=== PATIENT | female | born 1965 | race Caucasian/White ===

== ENCOUNTER → 2021-09-20 10:06 | Outpatient (BNVA) | payer OTHER, SELFPAY | PROVIDERS: PCP Pediatrics; Visit Provider Nurse Practitioner Family | DX: M48.061 Spinal stenosis, lumbar region without neurogenic claudication (principal); M54.16 Radiculopathy, lumbar region; M51.36 Other intervertebral disc degeneration, lumbar region; Z96.82 Presence of neurostimulator | CPT/HCPCS: 99202 ==

== ENCOUNTER → 2021-10-04 09:06 | Outpatient (BNVA) | payer OTHER, SELFPAY | PROVIDERS: PCP Pediatrics; Visit Provider Nurse Practitioner Family | DX: M51.36 Other intervertebral disc degeneration, lumbar region (principal); M48.061 Spinal stenosis, lumbar region without neurogenic claudication; M54.16 Radiculopathy, lumbar region | CPT/HCPCS: Q3014 ==

== ENCOUNTER 2021-11-21 17:57 | Outpatient (REF) | payer OTHER, SELFPAY | END 2021-11-21 17:58 | disposition home or self-care (01) | LOC: HO.MRI 17:57 | PROVIDERS: Visit Provider Nurse Practitioner Family | DX: Z13.89 Encounter for screening for other disorder (principal) ==

== ENCOUNTER 2021-12-05 17:59 | Outpatient (REF) | payer OTHER, SELFPAY | END 2021-12-05 18:00 | disposition home or self-care (01) | LOC: HO.MRI 17:59 | PROVIDERS: Visit Provider Nurse Practitioner Family | DX: Z13.89 Encounter for screening for other disorder (principal) ==

== ENCOUNTER 2021-12-20 18:42 | Outpatient (REF) | payer OTHER, SELFPAY ==
--- NOTE | ~2021-12-20 | MR_ITS ---
EXAMINATION: MR LUMBAR SPINE WITHOUT AND WITH CONTRAST CLINICAL INFORMATION: Other intervertebral disc degeneration, lumbar region. COMPARISON: None TECHNIQUE: MRI of the lumbar spine was obtained using routine sequences without and with intravenous contrast. A total of 10 mL Gadavist was intravenously administered. FINDINGS: The lumbar vertebral bodies maintain normal heights. There is mild retrolisthesis of L3 on L4 and mild anterolisthesis of L4 on L5. No moderate or severe disc height loss is seen. There is no bone marrow edema. The distal spinal cord appears normal. The conus medullaris terminates normally at the L1 level. No abnormal cauda equina nerve root enhancement is seen. Susceptibility signal artifact is seen at the T11 level presumably representing the known spinal cord stimulator. The extraspinal soft tissues are otherwise unremarkable. SPINAL LEVELS: L1-L2: Disc bulging with left foraminal protrusion causing abutment of the extraforaminal left L1 nerve root segment. No spinal canal stenosis. Left subarticular zone is narrowed. L2-L3: Disc bulging with ligamentum flavum infolding and moderate facet arthropathy. Mild narrowing of the neural foramina. No significant spinal canal stenosis. L3-L4: Disc bulging with ligamentum flavum infolding moderate facet arthropathy resulting in mild spinal canal stenosis and bilateral subarticular stenosis. Mild to moderate left and mild right neural foraminal stenosis. L4-L5: Grade 1 anterolisthesis with severe facet arthropathy resulting in bilateral subarticular stenosis and mild bilateral neural foraminal stenosis. Mild spinal canal stenosis. L5-S1: Disc bulging. No spinal canal or neural foraminal stenosis. MR/MR lumbar spine wo/w con IMPRESSION: Multilevel degenerative spondylosis without significant narrowing of the spinal canal. No high-grade neural foraminal stenosis is seen. Left foraminal protrusion abuts the extraforaminal left L1 nerve root segment.
== END 2021-12-20 18:43 | disposition home or self-care (01) ==
LOC: HO.MRI 18:42
PROVIDERS: Visit Provider Nurse Practitioner Family
DX: M48.061 Spinal stenosis, lumbar region without neurogenic claudication (principal); M51.36 Other intervertebral disc degeneration, lumbar region; M54.16 Radiculopathy, lumbar region; Z96.82 Presence of neurostimulator
CPT/HCPCS: 72158; A9585

== ENCOUNTER → 2021-12-24 14:02 | Outpatient (BNVA) | payer OTHER, SELFPAY | PROVIDERS: PCP Pediatrics; Visit Provider Nurse Practitioner Family | DX: M51.36 Other intervertebral disc degeneration, lumbar region (principal); M48.061 Spinal stenosis, lumbar region without neurogenic claudication; M54.16 Radiculopathy, lumbar region; M47.816 Spondylosis without myelopathy or radiculopathy, lumbar region; Z96.82 Presence of neurostimulator | CPT/HCPCS: Q3014 ==

== ENCOUNTER 2022-01-25 13:33 | Day surgery (SDC) | payer OTHER, SELFPAY ==
--- NOTE | 2022-01-24 09:03 | HO.ANESPROP2 ---
HPI - Anesthesia Eval Consult details Narrative: 56yo F for Left L4-L5 Transforaminal Epidural Injection PMFSH Active Problems Active Problems: All Active Problems (Updated 12/24/21 @ 14:34 by TATE Hebert) Facet arthropathy, lumbar (Acute) Lumbar spondylosis (Acute) Preprocedural examination (Acute) Degenerative disc disease, lumbar (Acute) Presence of neurostimulator (Acute) Spinal stenosis of lumbar region with radiculopathy (Acute) Past Medical History Medical History Abnormal liver function test ADHD Bipolar affective disorder COPD (chronic obstructive pulmonary disease) Diverticulosis of colon GERD (gastroesophageal reflux disease) Hypertension Insomnia Morbid obesity Severe obstructive sleep apnea Spinal stenosis of lumbar region Syncope Family History Family History Mother Hypertension Depression Restless leg syndrome Father Hypertension Diabetes Prostate CA Brother Peptic ulcer Sister Restless leg syndrome Surgical History Surgical History (Updated 01/25/22 @ 14:19 by Danna Moody RN) Hx of cholecystectomy Hx of colonoscopy Hx of esophagogastroduodenoscopy Social History Social History Patient Tobacco Use Status: Current everyday Tobacco user Tobacco use type: Cigarette Cigarette Packs Per Day: 1 Meds Allergies Allergy/AdvReac Type Severity Reaction Status Date / Time amoxicillin [From Augmentin] AdvReac vaginal Verified 12/24/21 14:04 rash clavulanic acid AdvReac vaginal Verified 12/24/21 14:04 [From Augmentin] rash Home Medications Medication Instructions Recorded Confirmed Last Taken Type acetaminophen 300 mg-codeine 60 mg 1 tab PO BID PRN 09/20/21 Unknown History tablet albuterol sulfate 90 mcg/actuation 0 mcg inhalation 09/20/21 Unknown History aerosol inhaler carbidopa 25 mg-levodopa 100 mg 0 tab PO 09/20/21 Unknown History tablet clonazepam 0.5 mg tablet 0.5 mg PO TID PRN 09/20/21 Unknown History divalproex 500 mg tablet,extended 1,000 mg PO BEDTIME 09/20/21 Unknown History release 24 hr fluticasone 250 mcg-salmeterol 50 1 ea inhalation BID 09/20/21 Unknown History mcg/dose blistr powdr for inhalation ([employer] Inhub) lisinopril 5 mg tablet 5 mg PO DAILY 09/20/21 Unknown History lorazepam 1 mg tablet 0 mg PO 09/20/21 Unknown History melatonin 3 mg capsule 3 mg PO BEDTIME PRN 09/20/21 Unknown History omeprazole 40 mg capsule,delayed 40 mg PO BID 09/20/21 01/25/22 History release quetiapine 100 mg tablet 100 mg PO BEDTIME 09/20/21 Unknown History ropinirole 1 mg tablet 0 mg PO 09/20/21 Unknown History zolpidem 10 mg tablet 10 mg PO BEDTIME PRN 09/20/21 Unknown History Exam Exam Date and Time: January 24, 2022 09 Assessment and Plan Assessment Anesthesia Assessment: Chart Reviewed
--- NOTE | ~2022-01-25 | FL_ITS ---
EXAMINATION: XR FLUOROSCOPY WITH IMAGES CLINICAL INFORMATION: Transforaminal epidural COMPARISON: MR lumbar spine 12/20/2021 TECHNIQUE: Fluoroscopy performed by Dr. Yuriy Castillo. Fluoroscopy time: 0.5 minutes DAP: 3.93 Gycm2 Images: 1 FINDINGS: There is spinal needle overlying the outer left L5 neural foramen. There is contrast in the respective nerve sheaths along with early transforaminal epidural extension. No visible vascular communication. FL/FL guidance in OR IMPRESSION: Fluoroscopy for pain management procedure.
[2022-01-25 12:57] VITALS: BMI 41.1
--- NOTE | 2022-01-25 13:45 | PC.NURSE ---
PT USES CANE AND WALKER AT HOME. TRANSFER ASSIST HERE FROM W/C TO STRETCHER DID NOT BRING TRANSFER CANE/WALKER
[2022-01-25] MEDS: Lactated Ringers 1,000 ML 100 ML IVCONT (14:12)
[2022-01-25 14:15] VITALS: BP 156/84; PULSE 90; RESP 18; TEMP 36.4; O2SAT 97
[2022-01-25 14:19] VITALS: PULSE 84; RESP 16; O2SAT 100
[2022-01-25] MEDS: Albuterol Sulfate (0.083%) 2.5 MG/3 ML VIAL.NEB INHALE (14:19)
--- NOTE | 2022-01-25 14:33 | P.CONAN_ITS ---
[facility] Active Problems Active Problems: All Active Problems (Updated 12/24/21 @ 14:34 by TATE Hebert) Spinal stenosis of lumbar region with radiculopathy (Acute) Presence of neurostimulator (Acute) Degenerative disc disease, lumbar (Acute) Preprocedural examination (Acute) Lumbar spondylosis (Acute) Facet arthropathy, lumbar (Acute) Past Medical History Medical History Abnormal liver function test ADHD Bipolar affective disorder COPD (chronic obstructive pulmonary disease) Diverticulosis of colon GERD (gastroesophageal reflux disease) Hypertension Insomnia Morbid obesity Severe obstructive sleep apnea Spinal stenosis of lumbar region Syncope Patient : No Family History Family History Mother Hypertension Depression Restless leg syndrome Father Hypertension Diabetes Prostate CA Brother Peptic ulcer Sister Restless leg syndrome Family history of problems with anesthesia: No Surgical History Surgical History (Updated 01/25/22 @ 14:19 by Danna Moody RN) Hx of cholecystectomy Hx of colonoscopy Hx of esophagogastroduodenoscopy History of Problems with Anesthesia: No Social History Social History Patient Tobacco Use Status: Current everyday Tobacco user Tobacco use type: Cigarette Cigarette Packs Per Day: 1 Smoked in Last 30 Days: Yes Patient Interested in Nicotine Replacement: No Substance Use Frequency: Occasionally Are you DNR?: No Advance Directives: No Advance Directives Information Provided: Yes Recently lost weight without trying: No Eating poorly because of decreased appetite: No Nutrition Risks: No Nutritional Risk Meds Allergies Allergy/AdvReac Type Severity Reaction Status Date / Time amoxicillin [From Augmentin] AdvReac vaginal Verified 12/24/21 14:04 rash clavulanic acid AdvReac vaginal Verified 12/24/21 14:04 [From Augmentin] rash Active Medications: Current Medications Albuterol Sulfate (Albuterol Sulfate (0.083%) 2.5 Mg/3 Ml Vial.Neb) 2.5 mg INHALE ONCE PRN PRN Reason: Shortness of Breath/Wheezing Last Admin: 01/25/22 14:19 Dose: 2.5 mg Lactated Ringer's (Lr) 1,000 mls @ 100 mls/hr IVCONT .Q10H ALESHA Last Admin: 01/25/22 14:12 Dose: 100 mls/hr Ondansetron HCl (Ondansetron Hcl 4 Mg/2 Ml Vial) 4 mg IVPUSH ONCE PRN PRN Reason: Nausea and Vomiting Home Medications Medication Instructions Recorded Confirmed Last Taken Type acetaminophen 300 mg-codeine 60 mg 1 tab PO BID PRN 09/20/21 Unknown History tablet albuterol sulfate 90 mcg/actuation 0 mcg inhalation 09/20/21 Unknown History aerosol inhaler carbidopa 25 mg-levodopa 100 mg 0 tab PO 09/20/21 Unknown History tablet clonazepam 0.5 mg tablet 0.5 mg PO TID PRN 09/20/21 Unknown History divalproex 500 mg tablet,extended 1,000 mg PO BEDTIME 09/20/21 Unknown History release 24 hr fluticasone 250 mcg-salmeterol 50 1 ea inhalation BID 09/20/21 Unknown History mcg/dose blistr powdr for inhalation ([employer] Inhub) lisinopril 5 mg tablet 5 mg PO DAILY 09/20/21 Unknown History lorazepam 1 mg tablet 0 mg PO 09/20/21 Unknown History melatonin 3 mg capsule 3 mg PO BEDTIME PRN 09/20/21 Unknown History omeprazole 40 mg capsule,delayed 40 mg PO BID 09/20/21 01/25/22 History release quetiapine 100 mg tablet 100 mg PO BEDTIME 09/20/21 Unknown History ropinirole 1 mg tablet 0 mg PO 09/20/21 Unknown History zolpidem 10 mg tablet 10 mg PO BEDTIME PRN 09/20/21 Unknown History Exam Exam Date and Time: January 25, 2022 1433 Height,Weight and Vital Signs: Height 5 ft 4 in Weight 108.862 kg Last Vital Signs Temp 97.6 F 01/25/22 14:15 Pulse 84 01/25/22 14:19 Resp 16 01/25/22 14:19 BP 156/84 H 01/25/22 14:15 Pulse Ox 97 01/25/22 14:15 O2 Del Method 01/25/22 14:15 Airway Mallampati Class: I TM Dist: >3cm Neck ROM: Full Denture: Upper and Lower Heart: rrr Lungs: clear Assessment and Plan Final Anesthetic Review Family History of Problems with Anesthesia: No History of Problems with Anesthesia: No NPO: Yes ASA Class: II Final Preanesthetic Review: No Changes in Pt Med Stat, Meds/Allgs Chart Reviewed, Consent Obtained/Reviewed and Anes Risks/Benef Reviewed Patient Risk: Intermediate Procedure Risk: Low Anesthetic Plan Anesthetic Plan: MAC: Disposition: Standard PACU
--- NOTE | 2022-01-25 14:37 | W.PM.OPN ---
Operative Note Operative Note Date of Service: 01/25/22 Narrative: Transforaminal epidural steroid injection L4-5 on the left.? After obtaining informed consent and thoroughly explaining the patient Risks and benefits of the procedure she was taken to the operating room and was positioned prone on operating table with a pillow under her belly.? [place] [employer] monitors were applied and patient was minimally to moderately sedated.? Her lower back was prepped with DuraPrep and draped with sterile utility towels. Time-out was performed delineating correct site and side of the procedure name and date of of the patient. C-arm was brought over the operating field and sq picture of L4 vertebra was demonstrated on the screen. the patient had surgical implanted spinal cord stimulator on the image positioned appropriately at T9 T10 posterior epidural space.? Tilting machine ipsilateral to the right the most prominent picture of the right L4 pedicle was obtained screen.? 3 mm below the lowest point of the projection of the pedicle to the skin injection of the local anesthetic lidocaine 1% was performed.? After that 22 gauge? 5 inch needle was inserted through the skin . The patient complained on severe pain on needle advancement. Injection of the additional doses of lidocaine into the needle resulted only in pain aggravation. Decision was made to obtain 25 gauge 5 inch Quinkey point needle which was inserted through the skin wheal and advanced toward the foramina under intermittent anterior posterior and oblique views.? when on anterior posterior view the tip of the needle appear to be within the silhouette of the lumbar vertebral spine the injection of the contrast performed and it was demonstrated perineural and epidural spread. ? 3 cc of local anesthesia preservative-free lidocaine 1% mixed with Kenalog 40 mg was performed into the needle. the needle was then withdrawn.? sterile Band-Aid was applied The patient tolerated procedure well, she was taken? to recovery room where she recovered uneventfully.
--- NOTE | 2022-01-25 14:41 | MHC.SHP ---
Pre-Procedural Eval Section A Date of Service: 01/25/22 The patient is an INPATIENT: No Changes since office visit: Yes Patient answered all questions The History & Physical has been completed within 30 days and I have reviewed it.: No Section B Chief Complaint: spinal stenosis Details of Present Illness: as above Relevant Family History (Specify if Yes): No Relevant Social History: None Present Medications: see Short Stay Collaborative assessment Medical History: No relevant PMH History of Previous Operations: No relevant previous surgery Allergies: Allergies Allergy/AdvReac Type Severity Reaction Status Date / Time amoxicillin [From Augmentin] AdvReac vaginal Verified 12/24/21 14:04 rash clavulanic acid AdvReac vaginal Verified 12/24/21 14:04 [From Augmentin] rash Review of Systems Sugical H&P ROS: Negative: Constitution, Cardiovascular, Respiratory, Neurological, Psychiatric, Hem-Onc, Allergic/Immunologic, Gastrointestinal, Genitourinary, Musculoskeletal, Integumentary, Endocrine and Eyes/Ears/Nose/Throat Exam Surgical H&P Exam: Normal: HEENT, Normal: Heart, Normal: Lungs, Normal: Extremities, Normal: Abdomen, Normal: Skin and Normal: Neurological Plan Diagnosis/Plan: Unchanged I have reviewed the history and physical and performed a pertinent physical examination on my patient. No changes have occurred unless specified.
--- NOTE | 2022-01-25 15:20 | PM.OP ---
Brief Operative Note Date of Service: 01/25/22 Pre-op diagnosis: spinal stenosis Post-op diagnosis: same Procedure: transforaminal L4-5 epidural steroid injection on the left Implants: none Surgeon: Yuriy Castillo MD Anesthesia: MAC Was an Engine Research Engineer used for this Procedure?: No Estimated blood loss (mL): 0 Pathology: none sent Condition: stable Disposition: PACU
[2022-01-25 15:21] VITALS: BP 111/59; PULSE 78; RESP 16; TEMP 36.8; O2SAT 95
[2022-01-25 15:35] VITALS: BP 142/80; PULSE 83; RESP 16; TEMP 36.8; O2SAT 98
== END 2022-01-25 15:41 | disposition home or self-care (01) ==
PROVIDERS: Visit Provider Anesthesiology
PROC: (CPT 64483; principal; 2022-01-25 15:00)
DX: M48.061 Spinal stenosis, lumbar region without neurogenic claudication (principal); M47.816 Spondylosis without myelopathy or radiculopathy, lumbar region; M51.36 Other intervertebral disc degeneration, lumbar region; Z96.82 Presence of neurostimulator; J44.9 Chronic obstructive pulmonary disease, unspecified; Z88.1 Allergy status to other antibiotic agents; F17.210 Nicotine dependence, cigarettes, uncomplicated
CPT/HCPCS: 64483; 94640; J2250; J3010; J3300

== ENCOUNTER → 2022-02-05 11:12 | Outpatient (BNVA) | payer OTHER, SELFPAY | PROVIDERS: Visit Provider Nurse Practitioner Family | DX: M51.36 Other intervertebral disc degeneration, lumbar region (principal); M47.26 Other spondylosis with radiculopathy, lumbar region; M48.061 Spinal stenosis, lumbar region without neurogenic claudication; Z79.899 Other long term (current) drug therapy; Z96.82 Presence of neurostimulator | CPT/HCPCS: 99212 ==

== ENCOUNTER → 2022-02-28 12:12 | Day surgery (SDC) | payer OTHER, SELFPAY ==
[2022-02-28 12:24] VITALS: BMI 37.4
[2022-02-28 12:33] VITALS: BP 111/72; PULSE 77; RESP 18; TEMP 36.1; O2SAT 97
[2022-02-28 12:36] VITALS: BMI 37.4
--- NOTE | 2022-02-28 13:34 | HO.ANESPROP2 ---
HPI - Anesthesia Eval Consult details Narrative: 56 F for possible spinal cord stimulator removal. Case cancelled by the surgeon [facility] Active Problems Active Problems: All Active Problems (Updated 12/24/21 @ 14:34 by TATE Hebert) Spinal stenosis of lumbar region with radiculopathy (Acute) Presence of neurostimulator (Acute) Degenerative disc disease, lumbar (Acute) Preprocedural examination (Acute) Lumbar spondylosis (Acute) Facet arthropathy, lumbar (Acute) Past Medical History Medical History Abnormal liver function test ADHD Bipolar affective disorder COPD (chronic obstructive pulmonary disease) Diverticulosis of colon GERD (gastroesophageal reflux disease) Hypertension Insomnia Morbid obesity Severe obstructive sleep apnea Spinal stenosis of lumbar region Syncope Family History Family History Mother Hypertension Depression Restless leg syndrome Father Hypertension Diabetes Prostate CA Brother Peptic ulcer Sister Restless leg syndrome Family history of problems with anesthesia: No Surgical History Surgical History Hx of cholecystectomy Hx of colonoscopy Hx of esophagogastroduodenoscopy History of Problems with Anesthesia: No Social History Patient Tobacco Use Status: Current everyday Tobacco user Tobacco use type: Cigarette Cigarette Packs Per Day: 1 Cigarettes Per Day: 20.0 Meds Allergies Allergy/AdvReac Type Severity Reaction Status Date / Time amoxicillin [From Augmentin] AdvReac vaginal Verified 03/07/22 15:39 rash clavulanic acid AdvReac vaginal Verified 03/07/22 15:39 [From Augmentin] rash Home Medications Medication Instructions Recorded Confirmed Last Taken Type acetaminophen 300 mg-codeine 60 mg 1 tab PO BID PRN 09/20/21 Unknown History tablet albuterol sulfate 90 mcg/actuation 0 mcg inhalation 09/20/21 Unknown History aerosol inhaler carbidopa 25 mg-levodopa 100 mg 0 tab PO 09/20/21 Unknown History tablet clonazepam 0.5 mg tablet 0.5 mg PO TID PRN 09/20/21 Unknown History divalproex 500 mg tablet,extended 1,000 mg PO BEDTIME 09/20/21 Unknown History release 24 hr fluticasone 250 mcg-salmeterol 50 1 ea inhalation BID 09/20/21 Unknown History mcg/dose blistr powdr for inhalation ([employer] Inhub) lisinopril 5 mg tablet 5 mg PO DAILY 09/20/21 Unknown History lorazepam 1 mg tablet 0 mg PO 09/20/21 Unknown History melatonin 3 mg capsule 3 mg PO BEDTIME PRN 09/20/21 Unknown History omeprazole 40 mg capsule,delayed 40 mg PO BID 09/20/21 01/25/22 History release quetiapine 100 mg tablet 100 mg PO BEDTIME 09/20/21 Unknown History ropinirole 1 mg tablet 0 mg PO 09/20/21 Unknown History zolpidem 10 mg tablet 10 mg PO BEDTIME PRN 09/20/21 Unknown History quetiapine 200 mg tablet 200 mg PO BID 02/05/22 Unknown History Exam Exam Date and Time: February 28, 2022 1334 Height,Weight and Vital Signs: Height 5 ft 4 in Weight 98.883 kg Last Vital Signs Temp 97.0 F 02/28/22 12:33 Pulse 77 02/28/22 12:33 Resp 18 02/28/22 12:33 BP 111/72 02/28/22 12:33 Pulse Ox 97 02/28/22 12:33 O2 Del Method 02/28/22 12:33 Airway Mallampati Class: II Loose/Missing/Broken Teeth: Yes Assessment and Plan Final Anesthetic Review Family History of Problems with Anesthesia: No History of Problems with Anesthesia: No NPO: Yes ASA Class: III Final Preanesthetic Review: Meds/Allgs Chart Reviewed, Consent Obtained/Reviewed and Anes Risks/Benef Reviewed Patient Risk: Intermediate Procedure Risk: Intermediate Anesthetic Plan Anesthetic Plan: GA Disposition: Standard PACU
--- NOTE | 2022-02-28 13:54 | MHC.SHP ---
Pre-Procedural Eval Section A Date of Service: 02/28/22 The patient is an INPATIENT: No Changes since office visit: Yes Patient answered all questions The History & Physical has been completed within 30 days and I have reviewed it.: No Section B Chief Complaint: Presence of neurostimulator Details of Present Illness: As above Allergies: Allergies Allergy/AdvReac Type Severity Reaction Status Date / Time amoxicillin [From Augmentin] AdvReac vaginal Verified 02/28/22 10:27 rash clavulanic acid AdvReac vaginal Verified 02/28/22 10:27 [From Augmentin] rash Review of Systems Sugical H&P ROS: Negative: Constitution, Cardiovascular, Respiratory, Neurological, Psychiatric, Hem-Onc, Allergic/Immunologic, Gastrointestinal, Genitourinary, Musculoskeletal, Integumentary, Endocrine and Eyes/Ears/Nose/Throat Exam Surgical H&P Exam: Normal: HEENT, Normal: Heart, Normal: Lungs, Normal: Extremities, Normal: Abdomen, Normal: Skin and Normal: Neurological Plan Diagnosis/Plan: Change on the physical exam before the procedure attention is was attracted to the scar of the implantation of the spinal cord stimulator in the lower thoracic spine. I suspected that this patient spinal cord stimulator is neurosurgically implanted. We brought the patient to the operating and positioned her on radiolucent operating table. The C-arm was brought over the thoracic spine and image of the lower thoracic spine was obtained. The neurosurgically implanted paddle was demonstrated in the patient's thoracic spine. Therefore there is no possibility to remove the entire system of the spinal cord stimulator without performing a neuro surgery. Leaving paddles in and removing only the battery would prevent this patient to go for future MRI examinations. This is less than acceptable for this patient who is suffering from significant degenerative disc disease of the spine. I decided to cancel this case. The patient was not sedated, she was explained the reason of cancellation. I will discuss the case with [employer] footwear sales representative and we will try to find a neurosurgeon and referred this patient to neuro surgery to remove the device.
== END ==
PROVIDERS: Visit Provider Anesthesiology
DX: Z46.2 Encounter for fitting and adjustment of other devices related to nervous system and special senses (principal); Z53.8 Procedure and treatment not carried out for other reasons; Z96.82 Presence of neurostimulator; M51.36 Other intervertebral disc degeneration, lumbar region; M48.061 Spinal stenosis, lumbar region without neurogenic claudication; M54.16 Radiculopathy, lumbar region; M47.816 Spondylosis without myelopathy or radiculopathy, lumbar region
CPT/HCPCS: 63688; Q3014

== ENCOUNTER → 2022-03-07 15:39 | Outpatient (BNVA) | payer OTHER, SELFPAY | PROVIDERS: PCP Pediatrics; Visit Provider Nurse Practitioner Family | DX: M48.061 Spinal stenosis, lumbar region without neurogenic claudication (principal); M54.16 Radiculopathy, lumbar region; M51.36 Other intervertebral disc degeneration, lumbar region; M47.816 Spondylosis without myelopathy or radiculopathy, lumbar region; Z96.82 Presence of neurostimulator | CPT/HCPCS: 99212 ==